=== PATIENT | female | born 2005 | race American Indian/Alaskan Native ===

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

== ENCOUNTER 2024-10-17 18:46 | Emergency (ER) | payer MEDICAID, OTHER ==
[2024-10-17 18:59] VITALS: BP 145/81; PULSE 98
[2024-10-17] MEDS: Ketorolac 30 MG/ML SDV IM ONE (19:13)
== END 2024-10-17 19:16 | disposition home or self-care (01) ==
LOC: DL.ED 18:46
DX: R51.9 Headache, unspecified (principal)
CPT/HCPCS: 96372; 99282; 99283; J1885